=== PATIENT | female | born 1995 | race Caucasian/White ===

== ENCOUNTER 2019-07-05 12:10 | Emergency (ER) | payer OTHER ==
[~2019-07-05] VITALS: Ht 170.2 cm; Wt 62.6 kg
[2019-07-05 12:16] VITALS: Ht 170.2 cm; Wt 62.6 kg
[2019-07-05 12:54] LABS: BASOPHIL % 0.5 % (0-2); PLATELET COUNT 298 x10^3mcL (130-400)
[2019-07-05 13:21] LABS: ALBUMIN 4.7 g/dL (3.4-5.0); CALCIUM 9.9 mg/dL (8.5-10.1); CARBON DIOXIDE 30.8 mmol/L (21-32); CHLORIDE SERUM 101 mmol/L (98-107); CREATININE SERUM 0.8 mg/dL (0.6-1.0); GFR1 > 60 mL/min; GLUCOSE SERUM 86 mg/dL (74-106); POTASSIUM SERUM 3.5 mmol/L (3.5-5.1); SODIUM SERUM 140 mmol/L (136-145); TOTAL PROTEIN, SERUM 8.6 g/dL (6.4-8.2)
[2019-07-05 13:22] LABS: ALKALINE PHOSPHATASE 66 U/L (46-116); ALT/SGPT 33 U/L (14-59); AST/SGOT 24 U/L (15-37); BILIRUBIN TOTAL 1.4 mg/dL (0.20-1.00)
[2019-07-05 13:40] LABS: microscopic required? YES; urine erythrocyte 2+ (NEGATIVE)
[2019-07-05 15:06] VITALS: BP 111/82
== END 2019-07-05 15:11 | disposition home or self-care (01) ==
LOC: ED 12:10
PROVIDERS: Emergency Medicine
DX: R31.9 Hematuria, unspecified (principal); K92.1 Melena; Z87.442 Personal history of urinary calculi
CPT/HCPCS: 36415